=== PATIENT | female | born 1935 | race Caucasian/White ===

== ENCOUNTER 2022-02-16 14:03 | Inpatient (IN) | payer MEDICARE, OTHER ==
[~2022-02-16] VITALS: Ht 160 cm; Wt 46.3 kg
--- NOTE | 2022-02-16 14:27 | NUR ---
BIB [facility],DRAINAGE FROM CLOSTOMY BAG WAS NOTED TO BE BLACK. PT STATED THAT SHE HAS BEEN HAVING TROUBLE HAVING BOWEL MOVEMENT FOR THAT PAST 2-3 DAYS AND WHEN SHE DOES IT IS PAINFUL. ATTACHED TO MONITOR, VITALS ARE WITHIN NORMAL LIMITS. AWAITING MD ORDERS.
--- NOTE | 2022-02-16 14:59 | NUR ---
IV ESTABLISHED L AC 20G. LABS DRAWN AND COLLECTED AT BEDSIDE
--- NOTE | 2022-02-16 15:02 | NUR ---
COVID TEST COLLECTED AND SENT
[2022-02-16] MEDS ORDERED: DIVA500T2 PO (15:09)
[2022-02-16] MEDS ORDERED: PANT40TA49 PO (15:09)
[2022-02-16] MEDS ORDERED: GABA100C PO (15:09)
[2022-02-16] MEDS ORDERED: DOCU-141 PO (15:09)
[2022-02-16] MEDS ORDERED: FERR325T23 PO (15:09)
[2022-02-16] MEDS ORDERED: INSU100V7 SQ (15:09)
[2022-02-16] MEDS ORDERED: INSU100C10 SQ (15:09)
[2022-02-16] MEDS ORDERED: LINA5TAB PO (15:09)
[2022-02-16] MEDS ORDERED: LEVO137T24 PO (15:09)
[2022-02-16] MEDS ORDERED: AMLO10TA4 PO (15:09)
[2022-02-16] MEDS ORDERED: CARV6.25 PO (15:09)
[2022-02-16 15:30] LABS: BASOPHILS % (AUTO) 0.2 % (0.0-2.0); EOSINOPHILS % (AUTO) 4.6 % (0.0-6.0); HEMATOCRIT 34 % (33-45); HEMOGLOBIN 11.2 g/dL (11.5-14.8); LYMPHOCYTES # (AUTO) 0.8 K/uL (0.8-4.8); LYMPHOCYTES % (AUTO) 17.5 % (20.0-44.0); MEAN CORPUSCULAR HGB CONC 33 g/dl (31.0-36.0); MEAN CORPUSCULAR VOLUME 92 fL (82-100); MONOCYTES # (AUTO) 0.4 K/uL (0.1-1.30); MONOCYTES % (AUTO) 9.7 % (2.0-12.0); NEUTROPHILS # (AUTO) 3.2 K/uL (1.8-8.9); PLATELET COUNT (AUTO) 210 K/uL (150-450); RED BLOOD CELL COUNT(AUTO) 3.67 MIL/uL (4.0-5.2); WHITE BLOOD COUNT (AUTO) 4.7 K/uL (4.3-11.0)
[2022-02-16 15:51] LABS: ALBUMIN 3.6 g/dL (3.4-5.0); BILIRUBIN,DIRECT 0.1 mg/dL (0.0-0.2); BILIRUBIN,TOTAL 0.3 mg/dL (0.2-1.0); CALCIUM, SERUM 8.9 mg/dL (8.5-10.1); CREATININE 1.3 mg/dL (0.6-1.3); TOTAL PROTEIN, SERUM 7.7 g/dL (6.4-8.2)
[2022-02-16] MEDS ORDERED: ONDANSETRON HCL/PF 4 MG/2 ML VIAL IVP PRN (17:30)
[2022-02-16] MEDS ORDERED: MAGNESIUM HYDROXIDE 30 ML UDC PO PRN (17:30)
[2022-02-16] MEDS ORDERED: Z GUARD REMEDY 4 OZ OINT TP PRN (17:30)
[2022-02-16] MEDS ORDERED: ACETAMINOPHEN 325 MG TABLET PO PRN (17:30)
[2022-02-16] MEDS ORDERED: DEXTROSE 50%-WATER 50 ML DISP.SYRIN IV PRN (17:30)
[2022-02-16] MEDS ORDERED: MAG HYDROX/AL HYDROX/SIMETH 30 ML UDC PO PRN (17:30)
[2022-02-16] MEDS ORDERED: *INSULIN REGULAR(HUMULIN R)HUM 100 UNIT/ML VIAL SQ PRN (17:30)
--- NOTE | 2022-02-16 18:31 | NUR ---
MOVE SHEET SUBMITTED.
[2022-02-16] MEDS: BLOOD SUGAR DIAGNOSTIC 1 EACH STRIP VI SCH (20:11)
[2022-02-16] MEDS: DOCUSATE SODIUM 250 MG CAPSULE PO SCH (23:00)
[2022-02-16] MEDS ORDERED: DOCUSATE SODIUM 250 MG CAPSULE PO ONE (23:06)
--- NOTE | 2022-02-17 02:28 | NUR ---
ROOM 311-1
--- NOTE | 2022-02-17 02:35 | NUR ---
REPORT GIVEN TO NATHANIEL VALENTINE FOR ALVAREZ.
[2022-02-17 03:00] VITALS: BP 105/54
[2022-02-17 03:25] VITALS: BP 144/70
--- NOTE | 2022-02-17 03:30 | NUR ---
PT TRANSPORTED TO UNIT ON [place] WITH EMT AND RN AT BEDSIDE. NAD NOTED DURING TRANSPORT.
--- NOTE | 2022-02-17 05:00 | NUR ---
MS LOCKSTITCH FRONT EDGE TAPE SEWER NOTE RECEIVED PATIENT FROM ER VIA [facility] WITH C/C OF GI BLEED ON HER COLOSTOMY LOCATED ON LUQ AND FAILURE TO THRIVE. PATIENT IS ALERT AND ORIENTED X3. IRISH SPEAKING. ABLE TO COMMUNICATE NEEDS WITH THE STAFFS. AFEBRILE AND NOT IN ANY FORM OF ACUTE DISTRESS. BREATHING EVEN AND NON LABORED. LUNGS CLEAR ON AUSCULTATION. DIRECTED TO ROOM AND EXPLAINED ADMISSION PROCESS INCLUDING BODY ASSESSMENT. VITALS TAKEN AND WNL. WITH IV ACCESS ON LEFT AC 20G. MONITORED FOR ANY S/SX. OF HYPO/HYPERGLYCEMIA. ON CLEAR LIQUID DIET. SAFETY MEASURES IN PLACE. KEPT BED IN LOCKED AND IN LOW POSITION TO REDUCE INJURY. SIDE RAILS UP X2. ADVISED TO USE THE CALL LIGHT WHEN IN NEED OF ASSISTANCE. WILL CONTINUE TO MONITOR.
[2022-02-17 05:29] VITALS: BP 144/70
--- NOTE | 2022-02-17 06:30 | NUR ---
RN CLOSING NOTE PATIENT IN BED, ASLEEP BUT EASY TO AROUSE AND RESPONSIVE. ALERT AND ORIENTED X3. SRI LANKAN SPEAKING. ABLE TO COMMUNICATE NEEDS WITH THE STAFFS. AFEBRILE AND NOT IN ANY FORM OF ACUTE DISTRESS. BREATHING EVEN AND NON LABORED. LUNGS CLEAR ON AUSCULTATION. WITH IV ACCESS ON LEFT AC 20G RUNNING WITH NS AT 75ML/HR. MONITORED FOR ANY S/SX. OF HYPO/HYPERGLYCEMIA. ON CLEAR LIQUID DIET. SAFETY MEASURES IN PLACE. KEPT BED IN LOCKED AND IN LOW POSITION TO REDUCE INJURY. SIDE RAILS UP X2. ADVISED TO USE THE CALL LIGHT WHEN IN NEED OF ASSISTANCE. ENDORSED TO INCOMING NURSE FOR CONTINUITY OF CARE.
[2022-02-17] MEDS: BLOOD SUGAR DIAGNOSTIC 1 EACH STRIP VI SCH ×4 (06:42→21:07)
[2022-02-17 06:57] LABS: BASOPHILS % (AUTO) 0.2 % (0.0-2.0); EOSINOPHILS % (AUTO) 4.7 % (0.0-6.0); HEMATOCRIT 33 % (33-45); HEMOGLOBIN 11.4 g/dL (11.5-14.8); LYMPHOCYTES # (AUTO) 0.9 K/uL (0.8-4.8); LYMPHOCYTES % (AUTO) 15.1 % (20.0-44.0); MEAN CORPUSCULAR HGB CONC 34 g/dl (31.0-36.0); MEAN CORPUSCULAR VOLUME 91 fL (82-100); MONOCYTES # (AUTO) 0.7 K/uL (0.1-1.30); MONOCYTES % (AUTO) 11.9 % (2.0-12.0); NEUTROPHILS # (AUTO) 3.9 K/uL (1.8-8.9); NEUTROPHILS % (AUTO) 68.1 % (43.0-81.0); PLATELET COUNT (AUTO) 218 K/uL (150-450); RED BLOOD CELL COUNT(AUTO) 3.64 MIL/uL (4.0-5.2); WHITE BLOOD COUNT (AUTO) 5.8 K/uL (4.3-11.0)
[2022-02-17 07:00] VITALS: BP 120/71
--- NOTE | 2022-02-17 07:30 | NUR ---
MS RN OPENING NOTES: PATIENT IN BED, ASLEEP, EASILY ROUSED. ALERT AND ORIENTED X2-3 ENGLISH SPEAKING, ABLE TO COMMUNICATE NEEDS. NO S/S OF SOB AND ACUTE DISTRESS ON RA. IV ACCESS ON LEFT AC 20G RUNNING WITH NS AT 75ML/HR. PT ON CLEAR LIQUID DIET. COLOSTOMY NOTED AT LUQ, INTACT. SAFETY MEASURES IN PLACE, SIDE RAILS UP X2, CALL LIGHT AND TABLE WITHIN REACH, WILL CONT WITH PLAN OF CARE DURING SHIFT.
[2022-02-17] MEDS: IV NS 0.9% 1,000 ML IV PRN (07:38)
[2022-02-17 08:45] LABS: CALCIUM, SERUM 9.2 mg/dL (8.5-10.1); CREATININE 1.1 mg/dL (0.6-1.3); POTASSIUM 3.6 mmol/L (3.5-5.1)
[2022-02-17] MEDS: GABAPENTIN 100 MG CAPSULE PO SCH ×2 (08:56→16:22)
[2022-02-17] MEDS: PANTOPRAZOLE 40 MG TABLET.DR PO SCH (08:56)
[2022-02-17] MEDS: DIVALPROEX SODIUM 500 MG TABLET.DR PO SCH ×2 (08:57→16:22)
[2022-02-17] MEDS: LEVOTHYROXINE SODIUM 100 MCG TABLET PO SCH (08:57)
[2022-02-17] MEDS ORDERED: PANTOPRAZOLE 40 MG VIAL IV SCH (09:00)
[2022-02-17] MEDS: AMLODIPINE BESYLATE 10 MG TABLET PO SCH (09:01)
[2022-02-17] MEDS: CARVEDILOL 6.25 MG TABLET PO SCH (09:01)
[2022-02-17 10:33] LABS: PHOSPHORUS 3.3 mg/dL (2.5-4.9)
[2022-02-17] MEDS: INSULIN REGULAR, HUMAN 100 UNIT/ML 3 ML VIAL SQ PRN (11:43)
[2022-02-17] MEDS: ENSURE CLEAR 237 ML LIQUID (MIX BERRY) PO SCH ×2 (12:06→17:50)
[2022-02-17 19:29] LABS: BILIRUBIN,URINE NEGATIVE (NEGATIVE); COLOR,URINE YELLOW (YELLOW); LEUKOCYTE ESTERASE ,URINE 3+ (NEGATIVE); NITRITE, URINE NEGATIVE (NEGATIVE); PROTEIN,URINE 1+ mg/dl (NEGATIVE); UGLUCOSE NEGATIVE (NEGATIVE); UROBILINOGEN,URINE 0.2 EU/dL (0.2)
[2022-02-17 19:31] LABS: OCCULT BLOOD STOOL POSITIVE (NEGATIVE)
--- NOTE | 2022-02-17 19:43 | NUR ---
MS RN CLOSING NOTES: PATIENT IN BED, ASLEEP, EASILY ROUSED. ALERT AND ORIENTED X2-3 TURKMEN SPEAKING, ABLE TO COMMUNICATE NEEDS. NO S/S OF SOB AND ACUTE DISTRESS ON RA. IV ACCESS ON LEFT AC 20G RUNNING WITH NS AT 75ML/HR. PT ON CLEAR LIQUID DIET. COLOSTOMY AT LUQ, DRAINED ABOUT 200 CC. NEEDS MET, KEPT CLEAN. DRY AND COMFORTABLE. SAFETY MEASURES IN PLACE, SIDE RAILS UP X2, CALL LIGHT AND TABLE WITHIN REACH, ENDORSED TO PM SHIFT.
[2022-02-17 19:54] LABS: BACTERIA,URINE Many /HPF (None Seen); SQUAMOUS EPITHELIAL CELL,UR Rare /HPF (None Seen); WBC,URINE 51-80 /HPF (0-3)
--- NOTE | 2022-02-17 19:59 | NUR ---
received in bed alert and orientated X3 pleasent and smiling zambian speaking with some understanding of italian noted colostomy lt abd clean and intact
[2022-02-17 20:00] VITALS: BP 113/52
[2022-02-17 20:29] VITALS: BP 113/52
[2022-02-17] MEDS: DOCUSATE SODIUM 250 MG CAPSULE PO SCH (21:08)
[2022-02-18] MEDS: IV NS 0.9% 1,000 ML IV PRN (02:03)
--- NOTE | 2022-02-18 05:07 | NUR ---
Closing Notes: alert / orientated X3 pleasent and cooperative colostomy bag left abd intact assisted pt with empting walker given to allow ambulating to the bathroom and made ambulating steady and safe.
[2022-02-18] MEDS: BLOOD SUGAR DIAGNOSTIC 1 EACH STRIP VI SCH ×4 (05:49→22:07)
[2022-02-18 06:54] LABS: BASOPHILS % (AUTO) 0.2 % (0.0-2.0); EOSINOPHILS % (AUTO) 5.8 % (0.0-6.0); HEMATOCRIT 31 % (33-45); HEMOGLOBIN 10.2 g/dL (11.5-14.8); LYMPHOCYTES # (AUTO) 0.9 K/uL (0.8-4.8); LYMPHOCYTES % (AUTO) 20.1 % (20.0-44.0); MEAN CORPUSCULAR HGB CONC 33 g/dl (31.0-36.0); MEAN CORPUSCULAR VOLUME 92 fL (82-100); MONOCYTES # (AUTO) 0.6 K/uL (0.1-1.30); MONOCYTES % (AUTO) 13.6 % (2.0-12.0); NEUTROPHILS # (AUTO) 2.8 K/uL (1.8-8.9); NEUTROPHILS % (AUTO) 60.3 % (43.0-81.0); PLATELET COUNT (AUTO) 201 K/uL (150-450); RED BLOOD CELL COUNT(AUTO) 3.34 MIL/uL (4.0-5.2); WHITE BLOOD COUNT (AUTO) 4.6 K/uL (4.3-11.0)
--- NOTE | 2022-02-18 07:25 | NUR ---
ms rn received on bed, awake,alerr,oriented x3,not in any form of distress, respirations even and unlabored,no sob noted. lungs are clear,abdomen soft,positive bowel sounds,denies pain at this time, colostomy intac w/ yellowish output, will monitor patient.
[2022-02-18 08:00] VITALS: BP 93/59
--- NOTE | 2022-02-18 08:30 | NUR ---
ms rn was seen by dr. oden,all needs attended.
[2022-02-18] MEDS: PANTOPRAZOLE 40 MG TABLET.DR PO SCH (08:54)
[2022-02-18] MEDS: GABAPENTIN 100 MG CAPSULE PO SCH ×2 (08:55→17:23)
[2022-02-18] MEDS: LEVOTHYROXINE SODIUM 100 MCG TABLET PO SCH (08:55)
[2022-02-18] MEDS: DIVALPROEX SODIUM 500 MG TABLET.DR PO SCH ×2 (08:55→17:23)
[2022-02-18] MEDS: ENSURE CLEAR 237 ML LIQUID (MIX BERRY) PO SCH ×3 (08:56→17:25)
[2022-02-18] MEDS: CARVEDILOL 6.25 MG TABLET PO SCH (09:00)
[2022-02-18] MEDS: AMLODIPINE BESYLATE 10 MG TABLET PO SCH (09:00)
--- NOTE | 2022-02-18 09:10 | NUR ---
ms alejandro breakfast served,due meds given,tolerated well.
[2022-02-18] MEDS: INSULIN REGULAR, HUMAN 100 UNIT/ML 3 ML VIAL SQ PRN (14:19)
[2022-02-18 16:00] VITALS: BP 122/69
--- NOTE | 2022-02-18 18:34 | NUR ---
ms rn on bed, all needs attended.
--- NOTE | 2022-02-18 19:25 | NUR ---
MS RN OPENING NOTE RECEIVED PATIENT IN BED, AWAKE. PT IS ALERT AND ORIENTED X 2-3, [place]HAL[place] SPEAKING. ABLE TO COMMUNICATE NEEDS. NO S/S OF SOB AND ACUTE DISTRESS SEEN. ON RA, AND TOLERATING RA WELL. IV ACCESS TO LEFT AC 20G. COLOSTOMY BAG NOTED TO LEFT UQ, INTACT. SAFETY MEASURES IN PLACE, SIDE RAILS UP X2, CALL LIGHT AND TABLE WITHIN REACH. WILL CONTINUE TO MONITOR ACCORDINGLY.
[2022-02-18 20:00] VITALS: BP 134/60
[2022-02-18] MEDS: DOCUSATE SODIUM 250 MG CAPSULE PO SCH (22:04)
[2022-02-19 06:38] LABS: CREATININE 1.2 mg/dL (0.6-1.3); POTASSIUM 3.3 mmol/L (3.5-5.1)
[2022-02-19] MEDS: BLOOD SUGAR DIAGNOSTIC 1 EACH STRIP VI SCH ×2 (06:45→12:10)
[2022-02-19] MEDS: INSULIN REGULAR, HUMAN 100 UNIT/ML 3 ML VIAL SQ PRN ×2 (06:47→12:11)
[2022-02-19 06:51] LABS: BASOPHILS % (AUTO) 0.3 % (0.0-2.0); EOSINOPHILS % (AUTO) 6.2 % (0.0-6.0); HEMATOCRIT 32 % (33-45); HEMOGLOBIN 10.7 g/dL (11.5-14.8); LYMPHOCYTES # (AUTO) 0.9 K/uL (0.8-4.8); LYMPHOCYTES % (AUTO) 22.4 % (20.0-44.0); MEAN CORPUSCULAR HGB CONC 34 g/dl (31.0-36.0); MEAN CORPUSCULAR VOLUME 91 fL (82-100); MONOCYTES # (AUTO) 0.6 K/uL (0.1-1.30); MONOCYTES % (AUTO) 15.2 % (2.0-12.0); NEUTROPHILS # (AUTO) 2.4 K/uL (1.8-8.9); NEUTROPHILS % (AUTO) 55.9 % (43.0-81.0); PLATELET COUNT (AUTO) 210 K/uL (150-450); RED BLOOD CELL COUNT(AUTO) 3.47 MIL/uL (4.0-5.2); WHITE BLOOD COUNT (AUTO) 4.2 K/uL (4.3-11.0)
--- NOTE | 2022-02-19 07:09 | NUR ---
MS RN CLOSING NOTE LEFT PATIENT IN BED, AWAKE. PT IS ALERT AND ORIENTED X 2-3, GERMAN SPEAKING. ABLE TO MAKE NEEDS. NO S/S OF SOB AND ACUTE DISTRESS SEEN. ON RA, AND TOLERATING RA WELL. IV ACCESS TO LEFT AC 20G. COLOSTOMY BAG NOTED TO LEFT UQ, INTACT, COLOSTOMY BAG EMPTIED: 400 ML OF WATERY STOOL REMOVED. SAFETY MEASURES IN PLACE, SIDE RAILS UP X2, CALL LIGHT AND TABLE WITHIN REACH. WILL ENDORSE PT TO MORNING SHIFT NURSE FOR ALVAREZ.
[2022-02-19 08:00] VITALS: BP 136/64
--- NOTE | 2022-02-19 08:02 | NUR ---
RN OPENING NOTE RECEIVED PATIENT IN BED, AO X 3 TUNISIAN SPEAKING. ABLE TO RESPONDS PHYSICAL STIMULI. RESPIRATORY EVEN AND UNLABORED ROOM AIR. IN NO ACUTE DISTRESS OBSERVED. SKIN IS WARM TO TOUCH, KEEP CLEAN/DRY. KEPT ELEVATED HOB FOR ASPIRATION PRECAUTION/ENSURE AIRWAY, AND LOWEST BED POSITIONED. BED ALARM IS ON AT ALL THE TIME FOR SAFETY. CALL LIGHT WITHIN REACH, WILL CONTINUE TO MONITOR.
[2022-02-19] MEDS: PANTOPRAZOLE 40 MG TABLET.DR PO SCH (08:46)
[2022-02-19] MEDS: LEVOTHYROXINE SODIUM 100 MCG TABLET PO SCH (08:46)
[2022-02-19] MEDS: GABAPENTIN 100 MG CAPSULE PO SCH (08:46)
[2022-02-19] MEDS: DIVALPROEX SODIUM 500 MG TABLET.DR PO SCH (08:46)
[2022-02-19] MEDS: AMLODIPINE BESYLATE 10 MG TABLET PO SCH (08:47)
[2022-02-19 08:48] VITALS: BP 136/64
[2022-02-19] MEDS: CARVEDILOL 6.25 MG TABLET PO SCH (08:48)
[2022-02-19] MEDS: ENSURE CLEAR 237 ML LIQUID (MIX BERRY) PO SCH ×2 (08:52→12:15)
[2022-02-19] MEDS ORDERED: POTASSIUM CHLORIDE 20 MEQ POWDER PACKET PO ONE (10:00)
[2022-02-19 11:09] LABS: BASOPHILS % (MANUAL) 0 % (0.0-2.0); EOSINOPHILS % (MANUAL) 3 % (0-4); LYMPHOCYTES % (MANUAL) 20 % (16-48); MONOCYTES % (MANUAL) 16 % (0-11.0); NEUTROPHILS % (MANUAL) 61 (42-76)
--- NOTE | 2022-02-19 14:02 | NUR ---
PATIENT D/C TO [facility], GIVEN REPORT Khoi/RN include pickle processor time.
--- NOTE | 2022-02-19 16:20 | NUR ---
2WMTs PICKED UP PATIENT, AND GIVEN REPORT. PATIENT IN STABLE CONDITION, IN NO ACUTE DISTRESS OBSERVED. REMOVED IV LINE BEFORE PATIENT LEAVE AND WOUND PICTURE TAKEN.
== END 2022-02-19 10:55 | DRG 377 ==
LOC: ER 15:07 → TRANSITION 18:48 → MED 02-17 02:30
PROVIDERS: ADMIT Internal Medicine; ATTEND Internal Medicine
DX: K92.2 Gastrointestinal hemorrhage, unspecified (principal); G93.41 Metabolic encephalopathy; N17.0 Acute kidney failure with tubular necrosis; E86.0 Dehydration; R62.7 Adult failure to thrive; E11.9 Type 2 diabetes mellitus without complications; I25.10 Atherosclerotic heart disease of native coronary artery without angina pectoris; Z20.822 Contact with and (suspected) exposure to COVID-19; F03.90 Unspecified dementia, unspecified severity, without behavioral disturbance, psychotic disturbance, mood disturbance, and anxiety; F20.9 Schizophrenia, unspecified; F41.9 Anxiety disorder, unspecified; F39 Unspecified mood [affective] disorder; Z93.3 Colostomy status; Z90.5 Acquired absence of kidney; Z79.899 Other long term (current) drug therapy; Z79.4 Long term (current) use of insulin; Z79.84 Long term (current) use of oral hypoglycemic drugs; D63.8 Anemia in other chronic diseases classified elsewhere; I10 Essential (primary) hypertension; E03.9 Hypothyroidism, unspecified; E11.42 Type 2 diabetes mellitus with diabetic polyneuropathy
CPT/HCPCS: 36415; 71045-TC; 76770-TC; 80048-TC; 80076-TC; 81001; 82272-TC; 82962-TC; 83690-TC; 83735-TC; 84100-TC; 85025-TC; 85730-TC; 86850-TC; 87081-TC; 87086-TC; C9803; G0378; J1815; J7030

== ENCOUNTER 2022-12-11 15:40 | Inpatient (IN) | payer MEDICARE, OTHER ==
[~2022-12-11] VITALS: Ht 162.6 cm; Wt 56.2 kg
[~2022-12-11 15:40] MED LIST: AMLO10TA4 PO; CARV6.25 PO; DIVA500T2 PO; DOCU-141 PO; FERR325T23 PO; GABA100C PO; INSU100C10 SQ; INSU100V7 SQ; LEVO137T24 PO; LINA5TAB PO; PANT40TA49 PO
[2022-12-11] MEDS ORDERED: GUAI100S9 PO (16:20)
[2022-12-11] MEDS ORDERED: ACET-868 PO (16:20)
[2022-12-11] MEDS ORDERED: MELA10CA PO (16:20)
[2022-12-11] MEDS ORDERED: DOCU250C14 PO (16:20)
[2022-12-11] MEDS ORDERED: INSU100V27 SQ (16:20)
[2022-12-11] MEDS ORDERED: DIVA125T32 PO (16:20)
[2022-12-11] MEDS ORDERED: LEVO125T8 PO (16:20)
[2022-12-11 16:45] LABS: BASOPHILS % (AUTO) 0.4 % (0.0-2.0); EOSINOPHILS # (AUTO) 0.2 K/uL (0.0-0.7); EOSINOPHILS % (AUTO) 5.7 % (0.0-6.0); HEMATOCRIT 34 % (33-45); HEMOGLOBIN 11.4 g/dL (11.5-14.8); LYMPHOCYTES # (AUTO) 0.7 K/uL (0.8-4.8); LYMPHOCYTES % (AUTO) 17.2 % (20.0-44.0); MEAN CORPUSCULAR HEMOGLOBIN 29 PG (26.0-33.0); MEAN CORPUSCULAR HGB CONC 33 g/dl (31.0-36.0); MEAN CORPUSCULAR VOLUME 88 fL (82-100); MONOCYTES # (AUTO) 0.4 K/uL (0.1-1.30); MONOCYTES % (AUTO) 8.2 % (2.0-12.0); NEUTROPHILS # (AUTO) 2.9 K/uL (1.8-8.9); NEUTROPHILS % (AUTO) 68.5 % (43.0-81.0); PLATELET COUNT (AUTO) 253 K/uL (150-450); RED BLOOD CELL COUNT(AUTO) 3.87 MIL/uL (4.0-5.2); RED CELL DISTRIBUTION WIDTH 13.5 % (11.5-15.0); WHITE BLOOD COUNT (AUTO) 4.3 K/uL (4.3-11.0)
[2022-12-11 16:52] LABS: CALCIUM, SERUM 9.2 mg/dL (8.5-10.1); CARBON DIOXIDE 28 mmol/L (21-32); CHLORIDE 95 mmol/L (98-107); CREATININE 1.2 mg/dL (0.6-1.3); GLUCOSE 105 mg/dL (74-106); POTASSIUM 4.1 mmol/L (3.5-5.1); SODIUM SERUM 131 mmol/L (136-145); UREA NITROGEN, BLOOD 16 mg/dL (7-18)
[2022-12-11 16:57] LABS: ALANINE AMINOTRANSFERASE 16 U/L (12-78); ALBUMIN 3.7 g/dL (3.4-5.0); ALKALINE PHOSPHATASE 90 U/L (46-116); ASPARTATE AMINOTRANSFERASE 11 U/L (15-37); BILIRUBIN,DIRECT 0.1 mg/dL (0.0-0.2); BILIRUBIN,TOTAL 0.2 mg/dL (0.2-1.0); LIPASE 489 U/L (73-393); TOTAL PROTEIN, SERUM 7.7 g/dL (6.4-8.2)
[2022-12-11 18:16] VITALS: BP 146/80; TEMP 98.4; O2SAT 98
[2022-12-11] MEDS ORDERED: ACETAMINOPHEN 325 MG TABLET PO PRN ×2 (18:30→19:30)
[2022-12-11] MEDS ORDERED: ONDANSETRON HCL/PF 4 MG/2 ML VIAL IVP PRN (18:30)
[2022-12-11] MEDS ORDERED: MAG HYDROX/AL HYDROX/SIMETH 30 ML UDC PO PRN (18:30)
[2022-12-11] MEDS ORDERED: ZOLPIDEM TARTRATE 5 MG TABLET PO PRN (18:30)
[2022-12-11] MEDS ORDERED: Z GUARD REMEDY 4 OZ OINT TP PRN (18:30)
[2022-12-11] MEDS ORDERED: MAGNESIUM HYDROXIDE 30 ML UDC PO PRN (18:30)
[2022-12-11] MEDS ORDERED: Medication Not On Formulary EA (Melatonin 10 MG) PO PRN (19:30)
[2022-12-11] MEDS ORDERED: GUAIFENESIN 300 MG/15 ML UDC PO PRN (19:30)
[2022-12-11] MEDS ORDERED: DEXTROSE 50%-WATER 50 ML DISP.SYRIN IV PRN (19:30)
[2022-12-11] MEDS ORDERED: IV NS 0.9% 1,000 ML IV ONE (19:30)
[2022-12-11] MEDS ORDERED: INSULIN REGULAR, HUMAN 100 UNIT/ML 3 ML VIAL SQ PRN (19:30)
[2022-12-11 20:00] VITALS: BP 134/69; TEMP 98.1; O2SAT 98
[2022-12-11] MEDS ORDERED: ENOXAPARIN SODIUM 40 MG/0.4 ML DISP.SYRIN SQ SCH (21:00)
[2022-12-11] MEDS: DOCUSATE SODIUM 250 MG CAPSULE PO SCH (21:04)
[2022-12-11] MEDS: ENOXAPARIN SODIUM 30 MG/0.3 ML DISP.SYRIN SQ SCH (21:07)
[2022-12-11] MEDS: BLOOD SUGAR DIAGNOSTIC 1 EACH STRIP VI SCH (22:07)
[2022-12-11] MEDS: *INSULIN REGULAR(HUMULIN R)HUM 100 UNIT/ML VIAL SQ PRN (22:09)
[2022-12-11 22:10] LABS: APPEARANCE,URINE CLEAR (CLEAR); BILIRUBIN,URINE NEGATIVE (NEGATIVE); BLOOD, URINE NEGATIVE Ery/uL (NEGATIVE); COLOR,URINE YELLOW (YELLOW); KETONES,URINE NEGATIVE (NEGATIVE); LEUKOCYTE ESTERASE ,URINE NEGATIVE (NEGATIVE); NITRITE, URINE NEGATIVE (NEGATIVE); PROTEIN,URINE 2+ mg/dl (NEGATIVE); UGLUCOSE NEGATIVE (NEGATIVE); UROBILINOGEN,URINE 0.2 EU/dL (0.2)
[2022-12-11 22:14] LABS: ADD URINE CULTURE NO; BACTERIA,URINE None seen /HPF (None Seen); MUCUS,URINE Many /LPF (None Seen); RBC,URINE 0-2 /HPF (0-2); WBC,URINE 0-2 /HPF (0-3)
[2022-12-12 04:00] VITALS: BP 143/81; TEMP 97.9; O2SAT 98
[2022-12-12 06:27] LABS: BASOPHILS % (AUTO) 0.4 % (0.0-2.0); EOSINOPHILS # (AUTO) 0.4 K/uL (0.0-0.7); EOSINOPHILS % (AUTO) 8.1 % (0.0-6.0); HEMATOCRIT 35 % (33-45); HEMOGLOBIN 11.8 g/dL (11.5-14.8); LYMPHOCYTES # (AUTO) 1.2 K/uL (0.8-4.8); LYMPHOCYTES % (AUTO) 23.2 % (20.0-44.0); MEAN CORPUSCULAR HEMOGLOBIN 30 PG (26.0-33.0); MEAN CORPUSCULAR HGB CONC 34 g/dl (31.0-36.0); MEAN CORPUSCULAR VOLUME 88 fL (82-100); MONOCYTES # (AUTO) 0.6 K/uL (0.1-1.30); MONOCYTES % (AUTO) 11.8 % (2.0-12.0); NEUTROPHILS % (AUTO) 56.5 % (43.0-81.0); PLATELET COUNT (AUTO) 245 K/uL (150-450); RED BLOOD CELL COUNT(AUTO) 3.99 MIL/uL (4.0-5.2); RED CELL DISTRIBUTION WIDTH 13.5 % (11.5-15.0); WHITE BLOOD COUNT (AUTO) 5.2 K/uL (4.3-11.0)
[2022-12-12 06:40] LABS: CALCIUM, SERUM 9.2 mg/dL (8.5-10.1); CARBON DIOXIDE 24 mmol/L (21-32); CHLORIDE 99 mmol/L (98-107); GLUCOSE 89 mg/dL (74-106); LIPASE 361 U/L (73-393); PHOSPHORUS 3.5 mg/dL (2.5-4.9); POTASSIUM 3.7 mmol/L (3.5-5.1); SODIUM SERUM 134 mmol/L (136-145); UREA NITROGEN, BLOOD 11 mg/dL (7-18)
[2022-12-12 07:10] LABS: THYROID STIMULATING HORMONE 4.394 uIU/mL (0.358-3.74)
[2022-12-12] MEDS ORDERED: PANTOPRAZOLE 40 MG TABLET.DR PO SCH (07:30)
[2022-12-12] MEDS: BLOOD SUGAR DIAGNOSTIC 1 EACH STRIP VI SCH ×4 (07:55→22:22)
[2022-12-12] MEDS: LEVOTHYROXINE SODIUM 125 MCG TABLET PO SCH (08:33)
[2022-12-12] MEDS: PANTOPRAZOLE 40 MG TABLET.DR PO SCH (08:34)
[2022-12-12] MEDS: INSULIN GLARGINE, 100 UNIT/ML CARTRIDGE SQ SCH (09:00)
[2022-12-12] MEDS: FERROUS SULFATE (325 MG) 325 MG/TAB TABLET PO SCH (09:09)
[2022-12-12] MEDS: AMLODIPINE BESYLATE 10 MG TABLET PO SCH (09:09)
[2022-12-12] MEDS: DIVALPROEX SODIUM 125 MG TABLET.DR PO SCH (09:09)
[2022-12-12] MEDS: LINAGLIPTIN 5 MG TABLET PO SCH (09:09)
[2022-12-12] MEDS: CARVEDILOL 6.25 MG TABLET PO SCH (09:10)
[2022-12-12] MEDS: GABAPENTIN 100 MG CAPSULE PO SCH ×2 (09:10→16:06)
[2022-12-12 13:00] VITALS: BP 135/77; TEMP 98.2; O2SAT 98
[2022-12-12] MEDS: IV D5/ 0.9% NACL 1,000 ML IV PRN (16:01)
[2022-12-12 20:00] VITALS: BP 124/60; TEMP 98.6; O2SAT 95
[2022-12-12] MEDS: ENOXAPARIN SODIUM 30 MG/0.3 ML DISP.SYRIN SQ SCH ×2 (20:41→21:00)
[2022-12-12] MEDS: DOCUSATE SODIUM 250 MG CAPSULE PO SCH (22:03)
[2022-12-12] MEDS: *INSULIN REGULAR(HUMULIN R)HUM 100 UNIT/ML VIAL SQ PRN (22:22)
[2022-12-13 04:00] VITALS: BP 120/61; TEMP 98.2; O2SAT 96
[2022-12-13] MEDS: PANTOPRAZOLE 40 MG TABLET.DR PO SCH (07:47)
[2022-12-13] MEDS: LEVOTHYROXINE SODIUM 125 MCG TABLET PO SCH (07:47)
[2022-12-13] MEDS: BLOOD SUGAR DIAGNOSTIC 1 EACH STRIP VI SCH ×4 (08:22→22:18)
[2022-12-13] MEDS: FERROUS SULFATE (325 MG) 325 MG/TAB TABLET PO SCH (08:54)
[2022-12-13] MEDS: AMLODIPINE BESYLATE 10 MG TABLET PO SCH (08:54)
[2022-12-13] MEDS: CARVEDILOL 6.25 MG TABLET PO SCH (08:55)
[2022-12-13] MEDS: LINAGLIPTIN 5 MG TABLET PO SCH (08:55)
[2022-12-13] MEDS: DIVALPROEX SODIUM 125 MG TABLET.DR PO SCH (08:55)
[2022-12-13] MEDS: GABAPENTIN 100 MG CAPSULE PO SCH ×2 (08:55→16:43)
[2022-12-13] MEDS: INSULIN GLARGINE, 100 UNIT/ML CARTRIDGE SQ SCH (09:00)
[2022-12-13 12:00] VITALS: BP 140/67; TEMP 98.2; O2SAT 96
[2022-12-13] MEDS: IV D5/ 0.9% NACL 1,000 ML IV PRN (12:37)
[2022-12-13] MEDS: GLUCERNA SHAKE 237 ML CAN PO SCH (16:27)
[2022-12-13 20:00] VITALS: BP 142/69; TEMP 98.6; O2SAT 97
[2022-12-13] MEDS: DOCUSATE SODIUM 250 MG CAPSULE PO SCH (21:22)
[2022-12-13] MEDS: ENOXAPARIN SODIUM 30 MG/0.3 ML DISP.SYRIN SQ SCH (21:22)
[2022-12-14 04:00] VITALS: BP 150/66; TEMP 98.8; O2SAT 97
[2022-12-14] MEDS: GLUCERNA SHAKE 237 ML CAN PO SCH (07:36)
[2022-12-14] MEDS: BLOOD SUGAR DIAGNOSTIC 1 EACH STRIP VI SCH ×2 (07:50→11:54)
[2022-12-14] MEDS: LEVOTHYROXINE SODIUM 125 MCG TABLET PO SCH (07:50)
[2022-12-14] MEDS: PANTOPRAZOLE 40 MG TABLET.DR PO SCH (07:50)
[2022-12-14] MEDS: FERROUS SULFATE (325 MG) 325 MG/TAB TABLET PO SCH (08:17)
[2022-12-14] MEDS: AMLODIPINE BESYLATE 10 MG TABLET PO SCH (08:18)
[2022-12-14] MEDS: LINAGLIPTIN 5 MG TABLET PO SCH (08:18)
[2022-12-14] MEDS: GABAPENTIN 100 MG CAPSULE PO SCH ×2 (08:18→16:14)
[2022-12-14] MEDS: CARVEDILOL 6.25 MG TABLET PO SCH (08:18)
[2022-12-14] MEDS: DIVALPROEX SODIUM 125 MG TABLET.DR PO SCH (08:18)
[2022-12-14] MEDS: INSULIN GLARGINE, 100 UNIT/ML CARTRIDGE SQ SCH (08:32)
[2022-12-14 12:00] VITALS: BP 150/72; TEMP 98.8; O2SAT 97
[2022-12-14 12:24] LABS: BASOPHILS % (AUTO) 0.4 % (0.0-2.0); EOSINOPHILS # (AUTO) 0.3 K/uL (0.0-0.7); EOSINOPHILS % (AUTO) 5.2 % (0.0-6.0); HEMATOCRIT 32 % (33-45); HEMOGLOBIN 10.7 g/dL (11.5-14.8); LYMPHOCYTES # (AUTO) 0.9 K/uL (0.8-4.8); LYMPHOCYTES % (AUTO) 14.8 % (20.0-44.0); MEAN CORPUSCULAR HEMOGLOBIN 29 PG (26.0-33.0); MEAN CORPUSCULAR HGB CONC 33 g/dl (31.0-36.0); MEAN CORPUSCULAR VOLUME 89 fL (82-100); MONOCYTES # (AUTO) 0.6 K/uL (0.1-1.30); MONOCYTES % (AUTO) 10.7 % (2.0-12.0); NEUTROPHILS % (AUTO) 68.9 % (43.0-81.0); PLATELET COUNT (AUTO) 244 K/uL (150-450); RED BLOOD CELL COUNT(AUTO) 3.63 MIL/uL (4.0-5.2); RED CELL DISTRIBUTION WIDTH 13.3 % (11.5-15.0); WHITE BLOOD COUNT (AUTO) 5.8 K/uL (4.3-11.0)
[2022-12-14 12:41] LABS: ALBUMIN 3.1 g/dL (3.4-5.0); BILIRUBIN,TOTAL 0.2 mg/dL (0.2-1.0); CALCIUM, SERUM 8.7 mg/dL (8.5-10.1); CREATININE 1.1 mg/dL (0.6-1.3); MAGNESIUM 1.8 mg/dL (1.8-2.4); PHOSPHORUS 3.4 mg/dL (2.5-4.9); POTASSIUM 3.8 mmol/L (3.5-5.1); TOTAL PROTEIN, SERUM 6.8 g/dL (6.4-8.2)
== END 2022-12-14 16:36 | DRG 394 ==
LOC: ER 15:45 → MEDSG1 18:10
PROVIDERS: ADMIT Student in an Organized Health Care Education/Training Program; ATTEND Nurse Practitioner Family
DX: K94.09 Other complications of colostomy (principal); E87.1 Hypo-osmolality and hyponatremia; K91.850 Pouchitis; R62.7 Adult failure to thrive; M71.9 Bursopathy, unspecified; E11.42 Type 2 diabetes mellitus with diabetic polyneuropathy; F03.90 Unspecified dementia, unspecified severity, without behavioral disturbance, psychotic disturbance, mood disturbance, and anxiety; D64.9 Anemia, unspecified; E03.9 Hypothyroidism, unspecified; N18.9 Chronic kidney disease, unspecified; Z90.5 Acquired absence of kidney; I12.9 Hypertensive chronic kidney disease with stage 1 through stage 4 chronic kidney disease, or unspecified chronic kidney disease; Y84.8 Other medical procedures as the cause of abnormal reaction of the patient, or of later complication, without mention of misadventure at the time of the procedure; Y82.8 Other medical devices associated with adverse incidents; Y92.129 Unspecified place in nursing home as the place of occurrence of the external cause; Z79.4 Long term (current) use of insulin; Z79.84 Long term (current) use of oral hypoglycemic drugs; Z79.899 Other long term (current) drug therapy; E11.22 Type 2 diabetes mellitus with diabetic chronic kidney disease; E86.1 Hypovolemia; I25.10 Atherosclerotic heart disease of native coronary artery without angina pectoris
CPT/HCPCS: 36415; 71045-TC; 80048-TC; 80053-TC; 80076-TC; 81001; 82962-TC; 83690-TC; 83735-TC; 84100-TC; 84443-TC; 84484-TC; 85025-TC; 87081-TC; 92526; 92611-TC; A4223; G0378; J1650; J1815; J7030; J7042